=== PATIENT | female | born 1960 | race Caucasian/White ===

== ENCOUNTER → 2017-07-10 | Outpatient (CLI) | payer OTHER ==
[2017-07-10] MEDS: PILOCARPINE 2% 15ML OPH (11:22)
[2017-07-10] MEDS: APRACLONIDINE 1% 0.1 ML OPH (11:22)
[2017-07-10] MEDS: PROPARACAINE 0.5% 15 ML OPH (11:22)
== END | disposition home or self-care (01) ==
LOC: RAD 10:38
DX: H40.20X0 Unspecified primary angle-closure glaucoma, stage unspecified (principal)
CPT/HCPCS: 66761